=== PATIENT | male | born 1955 | race Two or more races ===

== ENCOUNTER 2023-07-04 12:17 | Emergency (ER) | payer MEDICARE, BC ==
[~2023-07-04] VITALS: Ht 188 cm; Wt 104.8 kg
[2023-07-04] MEDS ORDERED: CEPH500C2 PO (13:00)
[2023-07-04] MEDS ORDERED: SULF1TAB48 PO (13:00)
[2023-07-04 13:25] VITALS: BP 131/64; TEMP 98.2; O2SAT 100
== END 2023-07-04 13:26 | disposition home or self-care (01) ==
LOC: ER 12:31
DX: L03.116 Cellulitis of left lower limb (principal); L03.115 Cellulitis of right lower limb; R60.0 Localized edema

== ENCOUNTER 2025-09-04 09:35 | Outpatient (CLI) | payer MEDICARE, BC ==
[~2025-09-04 09:35] MED LIST: CEPH500C2 PO; SULF1TAB48 PO
[2025-09-04] MEDS ORDERED: SILVER SULFADIAZINE CREAM 25 GM TUBE ONE (10:03)
== END 2025-09-04 23:59 | disposition home health service (06) ==
LOC: WOU 09:35
PROVIDERS: ATTEND Specialist
DX: I89.0 Lymphedema, not elsewhere classified (principal); I87.2 Venous insufficiency (chronic) (peripheral); E11.9 Type 2 diabetes mellitus without complications; Z79.84 Long term (current) use of oral hypoglycemic drugs; L60.2 Onychogryphosis; L60.3 Nail dystrophy; L60.0 Ingrowing nail; M20.22 Hallux rigidus, left foot; M79.672 Pain in left foot; M79.671 Pain in right foot
CPT/HCPCS: 29580; A6454